=== PATIENT | male | born 1965 ===

== ENCOUNTER 2017-04-05 17:22 | Emergency (ER) | payer MEDICAID, MEDICARE ==
[2017-04-05 17:22] VITALS: BMI 26.6
[2017-04-05 17:31] VITALS: BP 123/92; PULSE 107; RESP 16; TEMP 98; O2SAT 100
--- NOTE | 2017-04-05 19:17 | ED PDOC ---
HPI: Psych/Substance Abuse Time Seen by Provider: 04/05/17 17:36 Chief Complaint (Nursing): Substance Abuse Additional Complaint(s): To ED via BLS for evaluation [place]. Admits to drinking alcohol and IV heroin use today. Pt Awake, alert and oriented at this time. Answering questions appropriately. Reports he needs to leave for work, he was taking a nap in the park at this time. Past Medical History Reviewed: Historical Data, Nursing Documentation, Vital Signs Vital Signs: Last Vital Signs Temp 98.0 F 04/05/17 17:24 Pulse 107 H 04/05/17 17:24 Resp 16 04/05/17 17:24 BP 123/92 H 04/05/17 17:24 Pulse Ox 100 04/05/17 17:24 - Medical History PMH: Arthritis, Asthma, Depression (pt denies hx 05/18/16), HTN - Family History Family History: States: Unknown Family Hx - Social History Current smoker - smoking cessation education provided: No Alcohol: > 2 Drinks/Day Drugs: Other (used heroin today, usuaes 1-2x a week) - Immunization History Hx Tetanus Toxoid Vaccination: Yes (2015) Hx Influenza Vaccination: No Hx Pneumococcal Vaccination: No - Home Medications Home Medications: Ambulatory Orders Medication Instructions Recorded No Known Home Med 02/20/17 - Allergies Allergies/Adverse Reactions: Allergies Allergy/AdvReac Type Severity Reaction Status Date / Time No Known Allergies Allergy Verified 04/05/17 17:24 Review of Systems ROS Statement: Except As Marked, All Systems Reviewed And Found Negative Physical Exam - Reviewed Nursing Documentation Reviewed: Yes Vital Signs Reviewed: Yes - Physical Exam Appears: Positive for: Well, Non-toxic, No Acute Distress Head Exam: Positive for: ATRAUMATIC, NORMAL INSPECTION, NORMOCEPHALIC Skin: Positive for: Normal Color, Warm, DRY Eye Exam: Positive for: EOMI, Normal appearance, PERRL ENT: Positive for: Normal ENT Inspection Neck: Positive for: Normal, Painless ROM Cardiovascular/Chest: Positive for: Regular Rate, Rhythm Respiratory: Positive for: CNT, Normal Breath Sounds Gastrointestinal/Abdominal: Positive for: Normal Exam, Bowel Sounds, Soft Back: Positive for: Normal Inspection Extremity: Positive for: Normal ROM Neurologic/Psych: Positive for: Alert, Oriented - ECG O2 Sat by Pulse Oximetry: 100 Medical Decision Making Medical Decision Making: Pt awake, alert, oriented, ambulating with steady gait. Reports he can not stay in ED, needs to leave for work. No medical intervention needed at this time. Stable for discharge Disposition - Clinical Impression Clinical Impression: Substance abuse - Patient ED Disposition Is Patient to be Admitted: No - Disposition Disposition: Routine/Home Disposition Time: 19:14 Condition: STABLE Instructions: Polysubstance Abuse (ED) - POA Present On Arrival: None
== END 2017-04-05 18:40 | disposition home or self-care (01) ==
LOC: H.ER 17:22
DX: F11.20 Opioid dependence, uncomplicated (principal); F32.9 Major depressive disorder, single episode, unspecified; J45.909 Unspecified asthma, uncomplicated

== ENCOUNTER 2017-05-22 01:09 | Emergency (ER) | payer MEDICARE ==
[2017-05-22 01:09] VITALS: BMI 26.6
[2017-05-22 01:54] VITALS: BP 142/79; PULSE 88; RESP 20; TEMP 98; O2SAT 100
--- NOTE | 2017-05-22 02:27 | ED PDOC ---
HPI: Psych/Substance Abuse Time Seen by Provider: 05/22/17 01:37 Chief Complaint (Nursing): Alcohol Ingestion Chief Complaint (Provider): Alcohol Ingestion History Per: Patient History/Exam Limitations: no limitations Suicide/Self Injury Attempted (Context): None Modifying Factor(s): Alcohol Additional Complaint(s): 51 year old male brought in by H[employer] presents to ED with complaints of alcohol intoxication and denies having a past medical history. Patient speaks clearly and walks with a steady gait. Denies all other complaints. PCP: MASOOD Past Medical History Reviewed: Historical Data, Nursing Documentation, Vital Signs Vital Signs: Last Vital Signs Temp 98 F 05/22/17 01:50 Pulse 88 05/22/17 01:50 Resp 20 05/22/17 01:50 BP 142/79 05/22/17 01:50 Pulse Ox 100 05/22/17 01:50 - Medical History PMH: Arthritis, Asthma, Depression (pt denies hx 05/18/16), HTN - Family History Family History: States: No Known Family Hx - Living Arrangements Living Arrangements: Other (Undomiciled) - Social History Current smoker - smoking cessation education provided: No Ex-Smoker (has not smoked in the last 12 months): No Alcohol: > 2 Drinks/Day Drugs: Opiates - Immunization History Hx Tetanus Toxoid Vaccination: Yes (2015) Hx Influenza Vaccination: No Hx Pneumococcal Vaccination: No - Home Medications Home Medications: Ambulatory Orders Medication Instructions Recorded No Known Home Med 02/20/17 - Allergies Allergies/Adverse Reactions: Allergies Allergy/AdvReac Type Severity Reaction Status Date / Time No Known Allergies Allergy Verified 04/05/17 17:24 Review of Systems ROS Statement: Except As Marked, All Systems Reviewed And Found Negative ( patient denies all medical complaints) Physical Exam - Reviewed Nursing Documentation Reviewed: Yes Vital Signs Reviewed: Yes - Physical Exam Appears: Positive for: Non-toxic, No Acute Distress Head Exam: Positive for: ATRAUMATIC Skin: Positive for: Normal Color, Warm, Dry Eye Exam: Positive for: Normal appearance, EOMI, PERRL ENT: Positive for: Normal ENT Inspection Neck: Positive for: Normal, Painless ROM, Supple Cardiovascular/Chest: Positive for: Regular Rate, Rhythm. Negative for: Murmur Respiratory: Positive for: Normal Breath Sounds. Negative for: Respiratory Distress Gastrointestinal/Abdominal: Positive for: Soft. Negative for: Tenderness Back: Positive for: Normal Inspection Extremity: Positive for: Normal ROM. Negative for: Deformity Neurologic/Psych: Positive for: Alert, Oriented - ECG O2 Sat by Pulse Oximetry: 100 (RA) Pulse Ox Interpretation: Normal Medical Decision Making Medical Decision Makin Patient displays bed seeking behavior. Patient is medically stable and ready for discharge. Counseling has been provided and pt is in agreement. Return if symptoms persist or acutely worsen. Dx: alcohol use Scribe Attestation: Documented by Rowena Colby acting as a scribe for Yohan Díaz MD. Scribe Attestation: All medical record entries made by the Scribe were at my direction and personally dictated by me. I have reviewed the chart and agree that the record accurately reflects my personal performance of the history, physical exam, medical decision making, and the department course for this patient. I have also personally directed, reviewed, and agree with the discharge instructions and disposition. Disposition - Clinical Impression Clinical Impression: Alcohol use - Patient ED Disposition Is Patient to be Admitted: No - Disposition Disposition: Routine/Home Disposition Time: 02:17 Condition: STABLE Instructions: Alcohol Intoxication (ED) - POA Present On Arrival: None
== END 2017-05-22 03:55 | disposition home or self-care (01) ==
LOC: H.ER 01:09
DX: F10.129 Alcohol abuse with intoxication, unspecified (principal); F32.9 Major depressive disorder, single episode, unspecified; J45.909 Unspecified asthma, uncomplicated; Z87.891 Personal history of nicotine dependence